=== PATIENT | female | born 1945 | race Caucasian/White ===

== ENCOUNTER → 2021-02-15 | Outpatient (CLI) | payer MEDICARE, OTHER ==
--- NOTE | 2021-02-15 11:22 | KCIC ---
EXAM: Lumbar spine MRI without contrast. HISTORY: Left-sided sciatica TECHNIQUE: Multiplanar, multisequence magnetic resonance imaging of the lumbar spine was performed wi thout contrast. COMPARISON: None. FINDINGS: There is a mild acute or subacute compression fracture of L4, with associated linear hyperd ensity along the fracture line and surrounding marrow edema. There is adjacent marrow edema within th e left inferior aspect of L3 which is likely reactive in etiology. There is also degenerative endplat e edema along the left aspect of L1-L2. There is moderate to severe lumbar dextroscoliosis centered at L2-L3. There is minimal grade 1 irena listhesis of L4 on L5. There is multilevel endplate remodeling with disc space narrowing and osteophy tosis, primarily along the left aspect of L1-L2, L2-L3 and L3-L4 and right aspect of L4-L5. This deepali esponds with the levels of maximum scoliotic concavity. There are multiple bilateral renal cysts, the largest of which is seen on the right measuring 4.5 cm. These are partially excluded from the wsosx-iy-[id number]. There is a 1.1 cm fluid signal lesion along the left anterior disc space at L3-L4, likely due to fluid within extruded disc material rather than a c ystic lesion or abscess. The conus terminates at L1. There are sigmoid diverticula. At L1-L2, there is a left lateral recess to foraminal disc protrusion superimposed on a left lateral predominant disc bulge and endplate osteophytosis. There is mild left facet arthropathy. There is mil d right and moderate left foraminal stenosis. There is mild central canal stenosis. At L2-L3, there is a left lateral predominant disc bulge and endplate osteophytosis. There is mild le ft facet arthropathy. There is mild right and moderate left foraminal stenosis. There is mild central canal stenosis. At L3-L4, there is a left lateral predominant disc bulge and endplate osteophytosis. There is moderat e left facet arthropathy. There is mild right and severe left foraminal stenosis. There is mild centr al canal stenosis. At L4-L5, there is a diffuse disc bulge and endplate osteophytosis. There is mild bilateral facet art hropathy. There is moderate right and severe left foraminal stenosis. There is moderate central canal stenosis. There is effacement of the right lateral recess. At L5-S1, there is a right lateral predominant disc bulge and endplate osteophytosis. There is a left foraminal to extra foraminal disc protrusion and osteophyte complex. There is moderate right facet a rthropathy. There is severe right and mild left foraminal stenosis. IMPRESSION: 1. Mild acute or subacute compression fracture at L4. There is associated reactive marrow edema withi n the inferior aspect of L3. 2. Severe multilevel degenerative change involving the lumbar spine, described in detail above. This results in stenosis at multiple levels. The right foraminal stenosis is most significant at L5-S1 and a left foraminal stenosis is most significant at L3-L4 and L4-L5. 3. Polycystic kidneys, partially included on the [id number]-[id number]-rupk. 4. Small fluid signal lesion along the left anterior disc space of L3-L4, likely due to fluid within extruded disc material. Electronically signed by: Roselia Ghosh MD (02/15/2021 11:19 AM) [id number]
== END ==
LOC: KCIC MRI 08:29
PROVIDERS: ATTEND Physician Assistant Medical
DX: M48.56XA Collapsed vertebra, not elsewhere classified, lumbar region, initial encounter for fracture (principal); R60.0 Localized edema; Q61.3 Polycystic kidney, unspecified; M47.816 Spondylosis without myelopathy or radiculopathy, lumbar region; M51.27 Other intervertebral disc displacement, lumbosacral region; M48.8X7 Other specified spondylopathies, lumbosacral region; M48.07 Spinal stenosis, lumbosacral region; G95.89 Other specified diseases of spinal cord; M25.78 Osteophyte, vertebrae; M41.86 Other forms of scoliosis, lumbar region; M54.42 Lumbago with sciatica, left side
CPT/HCPCS: 72148

== ENCOUNTER → 2021-03-09 | Outpatient (CLI) | payer MEDICARE, OTHER ==
[~2021-03-09] MED LIST: DULO60CA7 PO; FURO-69 PO; GABA300C18 PO; IOHEXOL 180 MG/ML 10 ML VIAL. ONE; MELO15TA23 PO; METO50TA6 PO; VIT1TABL34 PO; methylPREDNISolone ACETATE 80 MG/ML VIAL. ONE
--- NOTE | 2021-03-09 13:00 | PDOC1 ---
INITIAL PAIN CONSULT DATE OF SERVICE: DOS: DATE: 03/09/21 TIME: 12:53 CHIEF COMPLAINT: Chief Complaint: Low back and left lower extremity pain HISTORY OF PRESENT ILLNESS: 75-year-old female presents with history of pain low back left lower extremity for approximately 1 month not the result of any specific injury or accident that she is aware of but could not get out of bed about 03 February and has significa nt pain in the low back rating to left lower extremity posterior gluteus posterior thigh posterior calf on the left side also some occasionally in the left anterior thigh mostly posteriorly patient reports no injury or accident pain is now constant sharp throbbing stabbing shooting in the low back left lower extremity patient did have an MRI scan demonstrating a mild acute or subac randall compression fracture at L4 with associated reactive marrow edema and severe multilevel degenerative changes over the lumbar spine with significant stenosis at multiple levels right foraminal stenosis most evident at L5-S1 left foraminal stenosis most significant at L3-4 and L4-5. Patient reports the pain has gotten worse over the past few weeks she did have 1 round of oral steroids which decrease the pain fairly significantly but came back after she finished a round of steroids. Patient reports it wakes her from sleep least once or twice a night does affect her bowel bladder control but no incontinence just increased frequency. Patient reports it significantly inhibits her ability to walk and she is using a cane when she ambulates. Patient reports she has had physical therapy in the past still doing some stretching and strength exercises associated with these but her left leg is getting more fatigued and weak and she is unable to do the exercises fully. Patient is taking hydrocodone which does decrease the pain to gradually this morning also cyclobenzaprine which does not decrease the pain significantly. Patient rates her disability rating 0-10 10 being the worst is a 5 with family home responsibilities and occupational activity 7 with recreation for social activity 3 with self-care and to with life support activities. PAST MEDICAL HISTORY: PMH: Hypertension, arthritis, depression, cigarette smoking, blood clot PREVIOUS SURGERIES: Past Surgical Hx: Lumbar discectomy in 2003, right wrist surgery, left total knee arthroplasty in 2009, right cataract extraction CURRENT MEDICATIONS: Current Meds: Active Scripts Medications Dose Route/Sig Max Daily Dose Days Date Category Cymbalta (Duloxetine Hcl) 60 Mg Capsule.dr 2 Cap PO DAILY 03/09/21 Reported Meloxicam 15 Mg Tablet 1 Tab PO DAILY 30 03/09/22 Reported Preservision Areds Tablet (Vit A/Vit C/Vit E/Zinc/Copper) 1 Each Tablet 1 Tab PO BID 03/09/21 Reported Lasix (Furosemide) 20 Mg Tablet 1 Tab PO DAILY 03/09/21 Reported Metoprolol Tartrate 50 Mg Tablet 1 Tab PO BID 03/09/21 Reported Gabapentin (Gabapentin) 300 Mg Capsule 300 Mg PO BID 03/09/21 Reported FAMILY HISTORY: Family Hx: Breast cancer patient's mother, arthritis the patient's mother and grandmother SOCIAL HISTORY: Social Hx: Patient drinks 1 glass of wine rarely reports that she quit smoking recently with multiple pack-year history prior, denies any illegal illicit or recreational drugs is lives locally in [facility] REVIEW OF SYSTEMS: ROS: Positive for those items mentioned in history of present illness, all systems are reviewed, otherwise negative ,and are complete full and well-documented on patient's chart. PHYSICAL EXAM: VS: Blood pressure is 130/77 pulse 63 respiration 16 temperature 98.2 F height 65 inches weight is 167 pounds. PE: PHYSICAL EXAMINATION: GENERAL: The patient is awake, alert, oriented, appropriate, very pleasant in demeanor, patient accompanied by her daughter. HEENT: Shows normocephalic, atraumatic. Extraocular movements are intact and symmetrical. Oral cavity: Mucous membranes moist and pink. NECK: Shows anterior throat supple without palpable lymphadenopathy noted. Swallow reflex symmetrical. CHEST: Shows normal on inspection. Breath sounds are clear bilaterally, coarse and distant but no rales rhonchi wheezes auscultated. HEART: Shows S1, S2 clear. No murmurs auscultated. ABDOMEN: Soft, nontender, nondistended. No palpable organomegaly is noted. BACK: Shows spine with some scoliotic features to the right and the thoracic distribution in the left to the lumbar distribution. Normal-appearing cervical lordotic curvature. There is increased thoracic kyphosis, some flattening of the lumbar lordotic curvature, with well-healed midline surgical scar. Lumbar paraspinous muscles show symmetrical on inspection, on palpation shows some moderate tenderness diffusely throughout the upper, middle and lower distribution of the paraspinous muscles bilaterally and also into the lower thoracic paraspinous musculature, firm and tender, but without specific trigger points, without radiation of pain. The patient has good rotational motion of the lumbar spine, both laterally as well as extension and flexion without significant difficulty. EXTREMITIES: Lower extremities show deep tendon reflexes 1 in the patellar and tendo calcaneus tendons. Motor exam is 5 on a scale of 5 with right dorsiflexion, extension, quadriceps and hamstring flexion and 4/5 on the left. Peripheral pulses are 1+ posterior tibial. No peripheral edema is noted bilaterally. Lower extremities are warm and dry to touch, equal in color and appearance. Straight leg raise noted to be positive on the left at about 35 degrees decreased with knee flexion but not completely relieved, right side is negative. SKIN: Shows warm and dry, good turgor. No edema. No sores, rashes or bruising throughout. IMPRESSION: Impression: 75-year-old female with approximate 1 month history of pain low back left lower extremity radicular fashion MRI scan lumbar spine as noted with compression fracture L4 Hypertension Arthritis Cigarette smoking Plan: Options were discussed with patient patient's daughter who accompanied her to visit today including conservative medical management physical therapies and interventional techniques. Patient would like to pursue interventional techniques. We discussed a lumbar epidural steroid injection using descriptions as well as anatomical models described the procedure. Risks were discussed including but not limited to: Bleeding, infection, possibility of epidural hematoma and subsequent neurological compromise, dural puncture, headaches, spinal cord and/or nerve damage, side effects of steroid medication, and poor results regarding pain control. Patient understands and wished to proceed. Patient will return to the clinic in approximately 3 weeks for follow-up, was counseled as to return appointment, activity level, and side effect to be aware of. Procedure is lumbar epidural steroid injection under local anesthetic using sterile prep and drape at the L5-S1 level using C-arm fluoroscopic guidance in both AP and lateral views medications injected is 120 mg Depo-Medrol +10mL preservative-free normal saline and 2 mL contrast- condition at discharge is stable patient tolerated procedure well had no complications. BOOGIE SMITH MD Mar 09, 2021 13:00
--- NOTE | 2021-03-09 13:01 | PDOC4 ---
Procedure Note: ICD 10 Code: ICD 10 Code: M54.17 M51.87 M48.07 Procedure Note: Patient was consented for lumbar epidural steroid injection with fluoroscopic guidance. Risks were discussed including but not limited to: Bleeding, infection, possibility of epidural hematoma and subsequent neurological compromise, dural puncture, headaches, spinal cord and/or nerve damage, side effects of steroid medication, and poor results regarding pain control. Patient understands and wished to proceed. Procedure is lumbar epidural steroid injection under local anesthetic using ster ile prep and drape at the L5-S1 level using C-arm fluoroscopic guidance in both AP and lateral views medications injected is 120 mg Depo-Medrol +10mL preservative-free normal saline and 2 mL contrast- condition at discharge is stable patient tolerated procedure well had no complications. BOOGIE SMITH MD Mar 09, 2021 13:01
== END | disposition home or self-care (01) ==
LOC: PNCL 11:29
PROVIDERS: ATTEND Anesthesiology
DX: M48.07 Spinal stenosis, lumbosacral region (principal); M51.17 Intervertebral disc disorders with radiculopathy, lumbosacral region; M79.605 Pain in left leg; Z79.899 Other long term (current) drug therapy
CPT/HCPCS: 62323; J1040; Q9965

== ENCOUNTER 2021-03-11 08:26 | Outpatient (CLI) | payer MEDICARE, OTHER ==
[~2021-03-11] VITALS: Ht 172.7 cm; Wt 72.7 kg
[2021-03-11] VITALS (8 sets, daily range): BP systolic 122–145; BP diastolic 64–75
[~2021-03-11 08:26] MED LIST changes: -IOHEXOL 180 MG/ML 10 ML VIAL. ONE; -methylPREDNISolone ACETATE 80 MG/ML VIAL. ONE
[2021-03-11] MEDS ORDERED: HYDR-2769 PO (08:45)
[2021-03-11 08:58] LABS: BASO # 0.1 x10^3/uL (0.0-0.2); BASO % 1 % (0-3); EOS # 0.2 x10^3/uL (0.0-0.7); EOS % 2 % (0-3); HEMATOCRIT 46.1 % (36.0-47.0); HEMOGLOBIN 15.1 g/dL (12.0-15.5); LYMPH # 2.3 x10^3/uL (1.0-4.8); LYMPH % 17 % (24-48); MEAN CORPUSCULAR HEMOGLOBIN 30 pg (25-35); MEAN CORPUSCULAR HGB CONC 33 g/dL (31-37); MEAN CORPUSCULAR VOLUME 90 fL (79-100); MONO # 0.9 x10^3/uL (0.0-1.1); MONO % 7 % (0-9); NEUT # 9.9 x10^3/uL (1.8-7.7); NEUT % 74 % (31-73); PLATELET COUNT 156 x10^3/uL (140-400); RED BLOOD COUNT 5.11 x10^6/uL (3.50-5.40); WHITE BLOOD COUNT 13.4 x10^3/uL (4.0-11.0)
[2021-03-11 09:05] LABS: PROTHROMBIN TIME PATIENT 12.8 SEC (11.7-14.0)
[2021-03-11 09:20] LABS: CALCIUM 8.6 mg/dL (8.5-10.1); CREATININE 0.7 mg/dL (0.6-1.0); GFR 81.1; POTASSIUM 4.4 mmol/L (3.5-5.1)
[2021-03-11] MEDS ORDERED: VANCOMYCIN 1GM IVPB FOR OMNI 250 ML IV PRN (09:30)
[2021-03-11] MEDS ORDERED: fentaNYL PF VIAL 100 MCG/2 ML VIAL ONE (10:20)
[2021-03-11] MEDS ORDERED: MIDAZOLAM HCL/PF 2 MG/2 ML VIAL. ONE (10:20)
[2021-03-11] MEDS ORDERED: LIDOCAINE WITH 8.4% SOD BICARB 3 ML DISP.SYRIN. ONE (10:27)
[2021-03-11] MEDS ORDERED: IOHEXOL 240 MG/ML 50ML VIAL. ONE (10:44)
[2021-03-11] MEDS ORDERED: IOHEXOL 240 MG/ML 50ML VIAL. IJ ONE (11:00)
[2021-03-11] MEDS ORDERED: fentaNYL PF VIAL 100 MCG/2 ML VIAL IV ONE (11:00)
[2021-03-11] MEDS ORDERED: LIDOCAINE WITH 8.4% SOD BICARB 3 ML DISP.SYRIN. IJ ONE (11:00)
[2021-03-11] MEDS ORDERED: MIDAZOLAM HCL/PF 2 MG/2 ML VIAL. IV ONE (11:00)
[2021-03-11] MEDS ORDERED: CONTRAST GIVEN. MC PRN (11:15)
--- NOTE | 2021-03-11 13:39 | NUR ---
discharge instructions reviewed with pt. Pt ambulated and tolerated PO. Pt stated her pain was less. pt home with family in private vehicle.
--- NOTE | 2021-03-11 16:32 | RAD ---
PROCEDURES: 1. Fluoroscopic guided L4 kyphoplasty. Clinical Indication: 75-year-old female with a pathologic compression fracture of the L4 vertebra sec ondary to bone demineralization. Patient has severe pain, refractory to conservative treatment measur es, limiting activities of daily living. The procedure, risks, and complications, to include bleeding, infection, cement embolization, damage to the vertebral endplates, compression of the spinal canal (due to hemorrhage or cement) and cement extrusion were explained to the patient and they understood and wished to proceed. Consent form sign ed. The lumbosacral region was prepped and draped using maximal sterile technique and 1% Xylocaine used f or local topical anesthesia and deep periosteal anesthesia. Pre-procedural antibiotics were administered. Sedation: Conscious sedation was performed for 60 minutes. Sedation was carried while the patient wa s continually monitored by a member of the Radiology nursing staff. Continual cardiopulmonary monito ring was carried out during the procedure. The patient tolerated the procedure well and there were n o immediate complications. Utilizing careful fluoroscopic biplane positioning, the L4 pedicles were identified. Using a left sided unilateral approach, a trocar needle was advanced into the anterior third of the L 4 vertebral body. Needle placement was confirmed in both the AP and lateral projections. Next the introducer stylet was removed. A kyphoplasty balloon was placed into the vertebral body and the coaxial needle was withdrawn. The balloon was inflated under fluoroscopic guidance to insure that there was no damage to the vertebral body endplates. When an adequate cavity had been formed by the ballon it was deflated and removed through the coaxial needle. Under very careful biplane fluoroscopic guidance, polymethylmethacrylate was carefully injected into the L4 vertebral body filling the cavity formed by the balloon as well as some of the surrounding tra beculae. No abnormal extravasation was identified. Following the cement injections, the needle was removed, pressure placed, and hemostasis obtained. No evidence of cement extrusion into the tract was identified. The patient tolerated the procedure well and will be observed in the recovery room area. Fluoroscopy time: 9.3 minutes Dose area product 122 Carrizales centimeter squared IMPRESSION: 1. Fluoroscopic guided percutaneous left sided unilateral L4 kyphoplasty. Electronically signed by: Ricki Rubio MD (03/11/2021 4:30 PM) [id number]
== END 2021-03-11 13:44 | disposition home or self-care (01) ==
LOC: INTRAD 08:26
PROVIDERS: ATTEND Physician Assistant Medical
DX: M80.08XA Age-related osteoporosis with current pathological fracture, vertebra(e), initial encounter for fracture (principal); M54.9 Dorsalgia, unspecified; I10 Essential (primary) hypertension; M19.90 Unspecified osteoarthritis, unspecified site; F32.9 Major depressive disorder, single episode, unspecified; Z98.890 Other specified postprocedural states; Z98.41 Cataract extraction status, right eye; Z79.899 Other long term (current) drug therapy; Z96.652 Presence of left artificial knee joint; Z88.0 Allergy status to penicillin; Z88.2 Allergy status to sulfonamides; Z88.8 Allergy status to other drugs, medicaments and biological substances
CPT/HCPCS: 22514; 36415; 80048; 85025; 85610; 99152; 99153; C1713; J2250; J3010; J3370; J3490; Q9966

== ENCOUNTER → 2021-03-30 | Outpatient (CLI) | payer MEDICARE, OTHER ==
[2021-03-11 13:00] VITALS: BP 145/72
[~2021-03-30] MED LIST changes: +HYDR-2769 PO; +IOHEXOL 180 MG/ML 10 ML VIAL. ONE; +methylPREDNISolone ACETATE 80 MG/ML VIAL. ONE
--- NOTE | 2021-03-30 12:34 | PDOC ---
Progress Note - Pain Clinic Date of Service: DOS: DATE: 03/30/21 TIME: 12:30 Diagnosis: Dx: Lumbar radiculopathy with lumbar degenerative disease lumbar spinal stenosis and lumbar postlaminectomy syndrome Compression fracture L4 status post vertebroplasty History or Present Illness: HPI: 75-year-old female returns for follow-up status post lumbar epidural steroid injection x1 last seen March 09, 2021 patient did very well with about a 50% improvement patient had vertebroplasty approximately 2 days after that with good results as well patient reports still significant pain however now the pain is different as it has changed from just the left lower extremity she is now getting some pain in the right lower extremity since last visit patient reports in the posterior gluteus and thighs bilaterally still worse on the left side but present on the right side now as well which is new for her. Patient reports no injuries or accidents since her last visit, no new bowel or bladder incontinence. Patient describes her pain is an 8 on scale 10 at its worst over the past week 6 on average 4 at its least and is a 6 today. Patient scribes pain is aching and dull in the back tight and shooting in the lower extremities again worse on the left but not present in the right posterior gluteus and thigh. Patient reports is worse with walking standing changing positions better with sitting or laying down generally does not awaken her from sleep at night. Physical Exam: VS: Blood pressure is 135/76 pulse 63 respirations 18 temperature 96 F height is 65 inches weight is 168 pounds. PE: PHYSICAL EXAMINATION: GENERAL: The patient is awake, alert, oriented, appropriate, very pleasant in demeanor HEENT: Shows normocephalic, atraumatic. Extraocular movements are intact and symmetrical. Patient wearing eyeglasses. Oral cavity: Mucous membranes moist and pink. NECK: Shows anterior throat supple without palpable lymphadenopathy noted. Swallow reflex symmetrical. CHEST: Shows normal on inspection. Breath sounds are clear bilaterally, no rales or rhonchi auscultated. HEART: Shows S1, S2 clear. No murmurs auscultated. ABDOMEN: Soft, nontender, nondistended. No palpable organomegaly is noted. BACK: Shows spine grossly in the midline. Normal-appearing cervical lordotic curvature. There is moderately increased thoracic kyphosis, some flattening of the lumbar lordotic curvature, with well-healed surgical scar. Lumbar paraspinous muscles show symmetrical on inspection, on palpation shows some moderate tenderness diffusely throughout the upper, middle and lower distribution of the paraspinous muscles without specific trigger points, without radiation of pain. The patient has good rotational motion of the lumbar spine, both laterally as well as extension and flexion without significant difficulty. EXTREMITIES: Lower extremities show deep tendon reflexes 1+ in the patellar and tendo calcaneus tendons. Motor exam is 5 on a scale of 5 with right dorsiflexion, extension, quadriceps and hamstring flexion and 4/5 on the left. Peripheral pulses are 1+ posterior tibial. No peripheral edema is noted bilaterally. Lower extremities are warm and dry. SKIN: Shows warm and dry, good turgor. No edema. No sores, rashes or bruising throughout. Procedure: Procedure: Options were discussed with patient. Patient's old chart was reviewed his current medication regimen updated systems updated today as well. We will proceed with a lumbar epidural steroid injection today with fluoroscopic guidance. Risks were discussed including but not limited to: Bleeding, infection, possibility of epidural hematoma and subsequent neurological compromise, dural puncture, headaches, spinal cord and/or nerve damage, side effects of steroid medication, and poor results regarding pain control. Patient understands and wished to proceed. Patient will return to clinic in approxim ately 2 weeks for follow-up, was counseled as return appointment, activity level, and side effects to be aware of. Medication Injected: Med Injected: Procedure is lumbar epidural steroid injection under local anesthetic using sterile prep and drape at the L5-S1 level using C-arm fluoroscopic guidance in both AP and lateral views medications injected is 120 mg Depo-Medrol +10mL preservative-free normal saline and 2 mL contrast- condition at discharge is stable patient tolerated procedure well had no complications. Condition at Discharge: Condition at Discharge: Condition at discharge is stable, patient tolerated the procedure well and had no complications. BOOGIE SMITH MD Mar 30, 2021 12:34
--- NOTE | 2021-03-30 12:35 | PDOC4 ---
Procedure Note: ICD 10 Code: ICD 10 Code: M54.17 M51.87 M4 8.07 M 96.1 Procedure Note: Patient was consented for lumbar epidural steroid injection with fluoroscopic guidance. Risks were discussed including but not limited to: Bleeding, infection, possibility of epidural hematoma and subsequent neurological compromise, dural puncture, headaches, spinal cord and/or nerve damage, side effects of steroid medication, and poor results regarding pain control. Patient understands and wished to proceed. Procedure is lumbar epidural steroid injection under local anesthetic using sterile prep and drape at the L5-S1 level using C-arm fluoroscopic guidance in both AP and lateral views medications injected is 120 mg Depo-Medrol +10mL preservative-free normal saline and 2 mL contrast- condition at discharge is stable patient tolerated procedure well had no complications. BOOGIE SMITH MD Mar 30, 2021 12:35
== END | disposition home or self-care (01) ==
LOC: PNCL 11:26
PROVIDERS: ATTEND Anesthesiology
DX: M51.16 Intervertebral disc disorders with radiculopathy, lumbar region (principal); M48.061 Spinal stenosis, lumbar region without neurogenic claudication; M96.1 Postlaminectomy syndrome, not elsewhere classified; I10 Essential (primary) hypertension; M19.90 Unspecified osteoarthritis, unspecified site; F41.9 Anxiety disorder, unspecified; F32.9 Major depressive disorder, single episode, unspecified; Z87.891 Personal history of nicotine dependence; Z79.899 Other long term (current) drug therapy; Z98.890 Other specified postprocedural states; Z88.0 Allergy status to penicillin; Z88.1 Allergy status to other antibiotic agents; Z88.2 Allergy status to sulfonamides
CPT/HCPCS: 62323; J1040; Q9965